=== PATIENT | female | born 1995 | race Caucasian/White ===

== ENCOUNTER → 2018-09-04 | Emergency (ER) | payer OTHER ==
[~2018-09-04] VITALS: Ht 165.1 cm; Wt 49.9 kg
== END | disposition left against medical advice (07) ==
LOC: ER 20:39
DX: S50.02XA Contusion of left elbow, initial encounter (principal); W10.8XXA Fall (on) (from) other stairs and steps, initial encounter; Y93.89 Activity, other specified; Y92.018 Other place in single-family (private) house as the place of occurrence of the external cause; Y99.8 Other external cause status